=== PATIENT | female | born 1990 | race Caucasian/White ===

== ENCOUNTER 2019-05-20 07:55 | Emergency (ER) | payer BC, OTHER, SELFPAY ==
[2019-05-20] MEDS ORDERED: FAMOTIDINE 20 MG/2 ML VIAL IV ONE (08:13)
[2019-05-20 08:36] LABS: Urine Blood NEGATIVE (NEG); Urine Glucose NEGATIVE (NEG); Urine Protein TRACE (NEG); Urine pH 6.5 (5.0-7.0)
[2019-05-20 08:47] LABS: Absolute Lymphocytes (CBC) 1.8 K/uL (0.7-4.9); Basophils % 0.4 % (0-1.3); Hematocrit 28.5 % (36.0-45.0); Lymphocytes % 19.8 % (15.3-44.8); MPV 8.2 fL (7.6-11.3); RBC Red Blood Cell Count 3.78 M/uL (3.86-4.86)
[2019-05-20 08:49] LABS: Protime INR 0.98
[2019-05-20 08:55] LABS: Urine Bacteria >50 /HPF (<20); Urine Culture Reflex Order NOT NEEDED; Urine RBC <5 /HPF (NONE SEEN)
[2019-05-20 08:58] LABS: BUN Blood Urea Nitrogen 5 mg/dL (7-18); Bicarbonate 21 mmol/L (21-32); Glucose Level 85 mg/dL (74-106); Potassium 3.6 mmol/L (3.5-5.1); Sodium Level 140 mmol/L (136-145)
[2019-05-20] MEDS ORDERED: CEFTRIAXONE/SWI 1gm 1 GM/10 ML SYR ONE (09:17)
[2019-05-20] MEDS ORDERED: CYANOCOBALAMIN 1000MCG/ML INJ IM ONE (09:30)
--- NOTE | 2019-05-20 10:06 | ER ---
Nurse's Notes [facility] Name: Cesia Manley Age: 28 yrs Sex: Female : 1990 Arrival Date: 05/20/2019 Time: 07:56 Bed 20 Private MD: Diagnosis: Palpitations;Anemia, unspecified; state;Urinary tract infection, site not specified Presentation: 05/20 07:56 Presenting complaint: Patient states: "I've been feeling like my heart is skipping a aa5 beat or something and it makes me short of breath since yesterday". Pt states "it has happened before and my doctor said that I needed an EKG if it continued but it stopped and I never got the EKG done". Pt reports being 35 weeks . Pt denies abd pain. Denies chest pain. 07:56 Transition of care: patient was not received from another setting of care. Onset of aa5 symptoms was May 2019. Risk Assessment: Do you want to hurt yourself or someone else? Patient reports no desire to harm self or others. Initial Sepsis Screen: Does the patient meet any 2 criteria? No. Patient's initial sepsis screen is negative. Does the patient have a suspected source of infection? No. Patient's initial sepsis screen is negative. Care prior to arrival: None. 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 - Social history:: Smoking status: Patient/guardian denies using tobacco. - Ebola Screening: : No symptoms or risks identified at this time. Screenin:05 Abuse screen: Denies threats or abuse. Nutritional screening: No deficits noted. em Tuberculosis screening: No symptoms or risk factors identified. Fall Risk None identified. Assessment: 08:05 General: Appears in no apparent distress. comfortable, Behavior is calm, cooperative. em Pain: Denies pain. Neuro: Level of Consciousness is awake, alert, obeys commands, Oriented to person, place, time, situation, Denies weakness dizziness. Cardiovascular: Reports palpitations, shortness of breath, Denies chest pain, nausea, vomiting, Heart tones S1 S2 present Capillary refill < 3 seconds Patient's skin is warm and dry. Rhythm is regular. Respiratory: Reports shortness of breath at rest cough that is dry, Airway is patent Respiratory effort is even, unlabored, Respiratory pattern is regular, symmetrical. GI: Patient currently denies abdominal pain, nausea, vomiting. Derm: Skin is intact, is healthy with good turgor, Skin is pink, warm \\T\\ dry. Musculoskeletal: Capillary refill < 3 seconds, Range of motion: intact in all extremities. 08:05 Reassessment: I agree with assessment completed by Johnny Arredondo LVN . aa5 09:00 Reassessment: Patient appears in no apparent distress at this time. Patient and/or em family updated on plan of care and expected duration. Pain level reassessed. Patient is alert, oriented x 3, equal unlabored respirations, skin warm/dry/pink. Patient denies pain at this time. Patient states symptoms have not improved. 09:45 Reassessment: Patient appears in no apparent distress at this time. Patient and/or em family updated on plan of care and expected duration. Pain level reassessed. Patient is alert, oriented x 3, equal unlabored respirations, skin warm/dry/pink. reports palpitations still there, denies pain at this time Patient states symptoms have not improved. Vital Signs: 08:00 BP 121 / 76; Pulse 93; Resp 18 S; Temp 98.2(O); Pulse Ox 100% on R/A; Weight 102.06 kg aa5 (R); Height 5 ft. 5 in. (165.10 cm) (R); Pain 0/10; 09:00 BP 109 / 62; Pulse 81; Resp 18; Pulse Ox 99% on R/A; Pain 0/10; em 10:00 BP 98 / 66; Pulse 89; Resp 16; Pulse Ox 100% on R/A; Pain 0/10; em 08:00 Body Mass Index 37.44 (102.06 kg, 165.10 cm) aa5 ED Course: 07:56 Patient arrived in ED. as 07:56 Arm band placed on Patient placed in an exam room, on a stretcher. aa5 08:02 [facility] Hutch[facility] snw 08:02 Santos Saavedra MD is Attending Physician. snw 08:05 Patient has correct armband on for positive identification. Placed in gown. Bed in low em position. Adult w/ patient. ekg monitor on. Pulse ox on. NIBP on. 08:05 Patient maintains SpO2 saturation greater than 95% on room air. em 08:08 Johnny Arredondo LVN is Primary Nurse. em 08:21 Triage completed. aa5 08:26 Initial lab(s) drawn, by me, sent to lab. Urine collected: clean catch specimen, jb1 cloudy, basil colored. Inserted saline lock: 22 gauge in right antecubital area, using aseptic technique. Blood collected. 10:23 No provider procedures requiring assistance completed. IV discontinued, intact, em bleeding controlled, No redness/swelling at site. Pressure dressing applied. Administered Medications: 08:30 Drug: Pepcid 20 mg Route: IVP; Site: right antecubital; aa5 10:21 Follow up: Response: No adverse reaction em 09:51 Drug: Vitamin B-12 1000 mcg Route: IM; Site: right deltoid; em 10:21 Follow up: Response: No adverse reaction em 09:52 Drug: Rocephin 1 grams Route: IV; Rate: calculated rate; Site: right antecubital; aa5 10:22 Follow up: Response: No adverse reaction; IV Status: Completed infusion; IV Intake: 10mlem Intake: 10:22 IV: 10ml; Total: 10ml. em Outcome: 10:05 Discharge ordered by . snw 10:25 Discharged to home ambulatory, with family. em 10:25 Condition: good 10:25 Discharge instructions given to patient, Instructed on discharge instructions, follow up and referral plans. medication usage, Demonstrated understanding of instructions, follow-up care, medications, Prescriptions given X 2. 10:26 Patient left the ED. em Signatures: Ryan Hopkins [email or web address] Debbie Hutchinson FNP-C FIELD TECHNICAL ASSISTANT-Csnw Johnny Arrdeondo LVN GEOLOGICAL DRAFTER em Melissa De Leon Audri, RN RN aa5 Corrections: (The following items were deleted from the chart) 15:55 08:05 Cardiovascular: Reports palpitations, shortness of breath, Denies chest pain, aa5 nausea, vomiting, Heart tones S1 S2 present Capillary refill < 3 seconds Patient's skin is warm and dry. Rhythm is sinus arrythmia em
--- NOTE | 2019-05-20 10:06 | EDPHYS ---
Physician Documentation [facility] Name: Cesia Manley Age: 28 yrs Sex: Female : 1990 Arrival Date: 05/20/2019 Time: 07:56 Bed 20 Private MD: ED Physician Santos Saavedra HPI: 05/20 10:00 This 28 yrs old Female presents to ER via Ambulatory with complaints of Chest snw Pain, Shortness Of Breath. 10:00 The patient presents with a history of irregular heart beat, heart skipping beats. snw Context: The symptoms occur at rest, without known cause. Onset: The symptoms/episode began/occurred gradually, and became persistent. Duration: The patient or guardian reports multiple episodes, that wax and wane. Modifying factors: The symptoms are aggravated by nothing. Associated signs and symptoms: Pertinent positives: cough. Severity of symptoms: At their worst the symptoms were moderate. The patient has experienced a previous episode. The patient has been recently seen by a physician: Pt is 35 wks . 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 - Social history:: Smoking status: Patient/guardian denies using tobacco. - Ebola Screening: : No symptoms or risks identified at this time. ROS: 08:11 Constitutional: Negative for fever, chills, and weight loss, Eyes: Negative for injury, snw pain, redness, and discharge, ENT: Negative for injury, pain, and discharge, Neck: Negative for injury, pain, and swelling, Abdomen/GI: Negative for abdominal pain, nausea, vomiting, diarrhea, and constipation, Back: Negative for injury and pain, : Negative for injury, bleeding, discharge, and swelling, MS/Extremity: Negative for injury and deformity, Skin: Negative for injury, rash, and discoloration, Neuro: Negative for headache, weakness, numbness, tingling, and seizure. 08:11 Cardiovascular: Positive for chest pain, palpitations. 08:11 Respiratory: Positive for shortness of breath, during palpitations. Exam: 08:08 Constitutional: This is a well developed, well nourished patient who is awake, alert, snw and in no acute distress. Head/Face: Normocephalic, atraumatic. Eyes: Pupils equal round and reactive to light, extra-ocular motions intact. Lids and lashes normal. Conjunctiva and sclera are non-icteric and not injected. Cornea within normal limits. Periorbital areas with no swelling, redness, or edema. ENT: Nares patent. No nasal discharge, no septal abnormalities noted. Tympanic membranes are normal and external auditory canals are clear. Oropharynx with no redness, swelling, or masses, exudates, or evidence of obstruction, uvula midline. Mucous membranes moist. Neck: Trachea midline, no thyromegaly or masses palpated, and no cervical lymphadenopathy. Supple, full range of motion without nuchal rigidity, or vertebral point tenderness. No Meningismus. Abdomen/GI: Soft, non-tender, with normal bowel sounds. + Gravid, No distension or tympany. No guarding or rebound. No evidence of tenderness throughout. Back: No spinal tenderness. No costovertebral tenderness. Full range of motion. Skin: Warm, dry with normal turgor. Normal color with no rashes, no lesions, and no evidence of cellulitis. MS/ Extremity: Pulses equal, no cyanosis. Neurovascular intact. Full, normal range of motion. Neuro: Awake and alert, GCS 15, oriented to person, place, time, and situation. Cranial nerves II-XII grossly intact. Motor strength 5/5 in all extremities. Sensory grossly intact. Cerebellar exam normal. Normal gait. 08:08 Respiratory: Lungs have equal breath sounds bilaterally, clear to auscultation and percussion. No rales, rhonchi or wheezes noted. No increased work of breathing, no retractions or nasal flaring. 08:08 Chest/axilla: Inspection: normal. 08:08 Cardiovascular: Rate: tachycardic, Rhythm: regular, Pulses: no pulse deficits are appreciated, Heart sounds: normal, Edema: is not appreciated. Vital Signs: 08:00 BP 121 / 76; Pulse 93; Resp 18 S; Temp 98.2(O); Pulse Ox 100% on R/A; Weight 102.06 kg aa5 (R); Height 5 ft. 5 in. (165.10 cm) (R); Pain 0/10; 09:00 BP 109 / 62; Pulse 81; Resp 18; Pulse Ox 99% on R/A; Pain 0/10; em 10:00 BP 98 / 66; Pulse 89; Resp 16; Pulse Ox 100% on R/A; Pain 0/10; em 08:00 Body Mass Index 37.44 (102.06 kg, 165.10 cm) aa5 MDM: 08:02 Patient medically screened. snw 10:06 Data reviewed: vital signs, nurses notes. Data interpreted: Pulse oximetry: on room air snw is 100 %. Interpretation: normal. Counseling: I had a detailed discussion with the patient and/or guardian regarding: the historical points, exam findings, and any diagnostic results supporting the discharge/admit diagnosis, lab results, the need for outpatient follow up, to return to the emergency department if symptoms worsen or persist or if there are any questions or concerns that arise at home. Response to treatment: the patient's symptoms have mildly improved after treatment. Special discussion: Based on the patient's history, exam, and Dx evaluation, there is no indication for emergent intervention or inpatient Tx. It is understood by the patient/guardian that if the Sx's persist or worsen they need to return immediately for re-evaluation. Based on the history and exam findings, there is no indication for further emergent testing or inpatient evaluation. I discussed with the patient/guardian the need to see the OB Gyne specialist for further evaluation of the symptoms. I discussed with the patient/guardian the need to see the primary care provider for further evaluation of the symptoms. 05/20 08:03 Order name: Urine Culture snw 05/20 08:03 Order name: Urine Microscopic Only; Complete Time: 09:04 snw 05/20 08:08 Order name: CBC with Diff; Complete Time: 08:53 snw 05/20 08:08 Order name: Chem 7; Complete Time: 09:04 snw 05/20 08:08 Order name: TSH; Complete Time: 09:04 snw 05/20 08:08 Order name: PT-INR; Complete Time: 08:53 snw 05/20 08:08 Order name: EKG; Complete Time: 08:09 snw 05/20 08:08 Order name: Ptt, Activated; Complete Time: 08:53 snw 05/20 08:12 Order name: Troponin (emerg Dept Use Only); Complete Time: 08:54 snw 05/20 08:31 Order name: Urine Dipstick--Ancillary (enter results); Complete Time: 08:39 eb 05/20 08:31 Order name: Urine --Ancillary (enter results); Complete Time: 08:39 eb 05/20 08:03 Order name: Urine Dipstick-Ancillary (obtain specimen); Complete Time: 08:27 snw 05/20 08:08 Order name: EKG - Nurse/Tech; Complete Time: 08:27 snw Administered Medications: 08:30 Drug: Pepcid 20 mg Route: IVP; Site: right antecubital; aa5 10:21 Follow up: Response: No adverse reaction em 09:51 Drug: Vitamin B-12 1000 mcg Route: IM; Site: right deltoid; em 10:21 Follow up: Response: No adverse reaction em 09:52 Drug: Rocephin 1 grams Route: IV; Rate: calculated rate; Site: right antecubital; aa5 10:22 Follow up: Response: No adverse reaction; IV Status: Completed infusion; IV Intake: 10mlem Disposition: 05/20/19 10:05 Discharged to Home. Impression: Palpitations, Anemia, unspecified, state, Urinary tract infection, site not specified. - Condition is Stable. - Discharge Instructions: Iron Deficiency Anemia, Adult, Anemia, Nonspecific, Iron-Rich Diet, Palpitations, [id number], and Urinary Tract Infection, Rehydration, Adult. - Prescriptions for Augmentin 875- 125 mg Oral Tablet - take 1 tablet by ORAL route every 12 hours for 10 days; 20 tablet. Vitamin 27- 0.8 mg Oral Tablet - take 1 tablet by ORAL route once daily; 60 tablet. - Work release form, Medication Reconciliation Form, Thank You Letter, Antibiotic Education, Prescription Opioid Use form. - Follow up: Private Physician; When: 1 - 2 days; Reason: Recheck today's complaints, Continuance of care, Re-evaluation by your physician. Follow up: Emergency Department; When: As needed; Reason: Worsening of condition. Addendum: 05/23/2019 08:54 Co-signature as Attending Physician, Santos Saavedra MD I agree with the assessment and k dr plan of care. Signatures: Dispatcher [employer] Santos Clark MD MD [facility] Debbie Hutchinson, MANAGER OF INTERNAL AUDIT-C MANAGER OF INTERNAL AUDIT-Csnw Johnny Arredondo, MITIGATION SUPERVISOR MITIGATION SUPERVISOR em Xochilt Heaton, RN RN aa5 Corrections: (The following items were deleted from the chart) 05/20 08:08 08:03 Urine Test ordered. snw snw 10:26 10:05 05/20/2019 10:05 Discharged to Home. Impression: Palpitations; Anemia, em unspecified; state; Urinary tract infection, site not specified. Condition is Stable. Forms are Medication Reconciliation Form, Thank You Letter, Antibiotic Education, Prescription Opioid Use. Follow up: Private Physician; When: 1 - 2 days; Reason: Recheck today's complaints, Continuance of care, Re-evaluation by your physician. Follow up: Emergency Department; When: As needed; Reason: Worsening of condition. snw
--- NOTE | 2019-05-20 12:34 | EKG ---
Test Date: 2019-05-20 Test Time: 08:09:20 Spool Hauler: TIGRE MEASUREMENT RESULTS: Intervals: Rate: 84 [place]: 118 QRSD: 72 QT: 348 QTc: 411 [place]: P: 48 [place]: 118 QRS: 21 T: 18 INTERPRETIVE STATEMENTS: Sinus rhythm with sinus arrhythmia with occasional premature ventricular complexes Otherwise normal ECG No previous ECG available for comparison Electronically Signed On 05-20-19 12:32:41 CDT by Manish Boyd
== END 2019-05-20 10:26 | disposition home or self-care (01) ==
LOC: ER 07:55
DX: O26.893 Other specified pregnancy related conditions, third trimester (principal); R00.2 Palpitations; O99.013 Anemia complicating pregnancy, third trimester; O23.43 Unspecified infection of urinary tract in pregnancy, third trimester; Z3A.35 35 weeks gestation of pregnancy; Z88.2 Allergy status to sulfonamides
CPT/HCPCS: 36415; 80048; 81003; 81015; 81025; 84443; 84484; 85025; 85610; 85730; 87086; 87088; 93005; 96365; 96372; 96375; 99285; J0696; J3420